=== PATIENT | male | born 1990 | race African-American/Black ===

== ENCOUNTER 2021-06-30 10:23 | Emergency (ER) | payer OTHER ==
[2021-06-30 11:02] VITALS: BP 127/47; PULSE 78; TEMP 99.1; BMI 31.6
[2021-06-30] MEDS ORDERED: ONDANSETRON 4 MG/2 ML VIAL IVPUSH ONE (11:40)
[2021-06-30] MEDS ORDERED: SODIUM CHLORIDE 0.9% 500 ML INFUS.BAG IV ONE (11:40)
[2021-06-30] MEDS ORDERED: FAMOTIDINE 20 MG/50 ML IVPB 20 MG/50 ML MG IVPB ONE (11:40)
[2021-06-30] MEDS ORDERED: ONDANSETRON 4 MG/2 ML VIAL ONE (13:07)
[2021-06-30] MEDS ORDERED: FAMOTIDINE 10 MG/ML VIAL IVPB ONE (13:08)
[2021-06-30] MEDS ORDERED: ACETAMINOPHEN 500 MG TABLET (FP) PO ONE (14:00)
[2021-06-30 14:04] LABS: BASO % 0.7 % (0-2.0); EOS % 0.3 % (0-4.5); HEMATOCRIT 43.1 % (35.4-49); HEMOGLOBIN 14.9 GM/dL (11.7-16.9); LYMPH % 7.5 % (8-40); MCH 32.6 pg (25.7-33.7); MCHC 34.6 g/dl (32.0-35.9); MEAN CELL VOLUME 94.3 fl (80-96); MEAN PLT VOLUME 9.3 fl (7.5-11.1); MONO % 17.7 % (3.8-10.2); NEUT % 73.8 % (42.8-82.8); PLATELET COUNT 182 10^3/uL (134-434); RBC 4.57 M/mm3 (4.00-5.60); RDW 12.4 % (11.9-15.9); WHITE BLOOD COUNT 4.3 K/mm3 (4.0-10.0)
[2021-06-30 14:30] LABS: ALBUMIN 4.2 g/dl (3.4-5.0); BLOOD UREA NITROGEN 6.7 mg/dL (7-18); CALCIUM 9.3 mg/dL (8.5-10.1)
[2021-06-30 14:34] LABS: CREATININE 1.1 mg/dL (0.55-1.3)
[2021-06-30 14:35] LABS: BILIRUBIN,TOTAL 0.7 mg/dL (0.2-1)
[2021-06-30 15:16] LABS: URINE APPEARANCE CLEAR; URINE BILIRUBIN NEGATIVE (NEGATIVE); URINE COLOR YELLOW; URINE GLUCOSE (UA) NEGATIVE (NEGATIVE); URINE KETONE NEGATIVE (NEGATIVE); URINE LEUK ESTERASE NEGATIVE (NEGATIVE); URINE NITRITE NEGATIVE (NEGATIVE); URINE PROTEIN NEGATIVE (NEGATIVE); URINE UROBILINOGEN 0.2 mg/dL (0.2-1.0)
[2021-07-01 21:09] LABS: SARS-CoV-2 NAA Detected (Not Detected)
== END 2021-06-30 16:03 | disposition home or self-care (01) ==
LOC: JER 10:23
PROC: 3E033GC Introduction of Other Therapeutic Substance into Peripheral Vein, Percutaneous Approach (ICD-10-PCS; principal; 2021-06-30)
PROC: 3E033GC Introduction of Other Therapeutic Substance into Peripheral Vein, Percutaneous Approach (ICD-10-PCS; 2021-06-30)
DX: R11.2 Nausea with vomiting, unspecified (principal); R51.9 Headache, unspecified; R53.1 Weakness
CPT/HCPCS: 36415; 80053; 81003; 85025; 87804; 99284-25; C9803-CS; U0003; U0005